=== PATIENT | male | born 1990 | race Hispanic/Latino ===

== ENCOUNTER 2023-10-06 01:10 | Emergency (ER) | payer OTHER ==
[~2023-10-06] VITALS: Ht 167.6 cm; Wt 71.2 kg
[2023-10-06 04:35] LABS: RAPID GROUP A STREP negative (NEGATIVE)
[2023-10-06 04:44] LABS: SARS-CoV-2, RNA, NAAT NEGATIVE SARS CoV-2 (NEGATIVE)
[2023-10-06 04:55] LABS: INFLUENZA TYPE A Negative For Type A (NEGATIVE); INFLUENZA TYPE B Negative For Type B (NEGATIVE)
[2023-10-06 06:00] VITALS: BP 124/76; PULSE 78; RESP 20; O2SAT 99
[2023-10-06] MEDS ORDERED: KETOROLAC 60 MG VIAL (30MG/ML) IM ONE (06:00)
[2023-10-06] MEDS ORDERED: DEXAMETHASONE SOD PHOSPHATE 4 MG/ML 1ML VIAL IM ONE (06:00)
[2023-10-06] MEDS ORDERED: BENZ-39 PO (06:10)
[2023-10-06] MEDS ORDERED: ALBUHFA IH (06:10)
== END 2023-10-06 06:30 | disposition home or self-care (01) ==
LOC: EDH 01:10
DX: B34.9 Viral infection, unspecified (principal); J02.8 Acute pharyngitis due to other specified organisms; J20.8 Acute bronchitis due to other specified organisms; Z20.822 Contact with and (suspected) exposure to COVID-19
CPT/HCPCS: 99284; 87635; 87880; 87804 ×2; 96372 ×2; J1100; J1885